=== PATIENT | female | born 1975 | race Caucasian/White ===

== ENCOUNTER → 2016-11-06 | Outpatient (CLI) | payer OTHER ==
--- NOTE | ~2016-11-06 | ENPV ---
Vascular Lower Extremities Venous Insufficiency and Lower Extremities DVT Study Procedure Demographics Patient Name JUSTO RUFFIN Date of Study 11/06/2016 Patient Number [id number] Gender Female Date of 1975 Age 40 Visit Number [id number] Height Accession Number [id number] Weight Room Number BSA BMI Referring German Tovar PAC Interpreting Enio Osuna MD Physician Physician Physician Ordering Physician German DEJESUS New Car Salesperson Fur Cleaner Tami Aguiar T Chantal Martinez Conclusions Summary No evidence of deep vein thrombosis or superficial thrombophlebitis in the right lower extremity . No significant reflux noted in the right greater saphenous vein. Procedure Type of Study: Veins:Lower Extremities Venous Insufficiency, Lower Extremities DVT Study, Lower Extremity Right. Indications for Study:Pain in Limb. Appropriate Use Criteria:5 Patient Status:Routine. Study Location:Vascular Lab. Technical Quality:Adequate visualization. Velocities are measured in cm/s ; Diameters are measured in cm Right Doppler Measurements and Mapping + +------+------+ +-------+ + !Location !Signal!Reflux!Reflux (sec)!AP Diam!Trans Diam ! + +------+------+ +-------+ + !Sapheno Femoral Junction !Phasic!No ! !0.35 !0.38 ! + +------+------+ +-------+ + !GSV High Thigh !Phasic!No ! !0.27 !0.26 ! + +------+------+ +-------+ + !GSV Mid Thigh !Phasic!No ! !0.22 !0.22 ! + +------+------+ +-------+ + !GSV Low Thigh !Phasic!No ! !0.23 !0.33 ! + +------+------+ +-------+ + !GSV Knee !Phasic!No ! !0.18 !0.18 ! + +------+------+ +-------+ + !GSV High Calf !Phasic!No ! !0.1 !0.13 ! + +------+------+ +-------+ + !GSV Mid Calf !Phasic!No ! !0.1 !0.11 ! + +------+------+ +-------+ + !GSV Low Calf !Phasic!No ! !0.13 !0.15 ! + +------+------+ +-------+ + Velocities are measured in cm/s ; Diameters are measured in cm Right Lower Extremities DVT Study Measurements Right 2D and Doppler Measurements + + + + +------+------+ + !Location !Visualized!Compressibility!Thrombosis!Signal!Reflux!Reflux ! ! ! ! ! ! ! !(sec) ! + + + + +------+------+ + !GSV Thigh !Yes !Yes !None !Phasic! ! ! + + + + +------+------+ + !Common !Yes !Yes !None !Phasic! ! ! !Femoral ! ! ! ! ! ! ! + + + + +------+------+ + !Prox !Yes !Yes !None !Phasic! ! ! !Femoral ! ! ! ! ! ! ! + + + + +------+------+ + !Mid Femoral!Yes !Yes !None !Phasic! ! ! + + + + +------+------+ + !Dist !Yes !Yes !None !Phasic! ! ! !Femoral ! ! ! ! ! ! ! + + + + +------+------+ + !Popliteal !Yes !Yes !None !Phasic! ! ! + + + + +------+------+ + !Gastroc !Yes !Yes !None ! ! ! ! + + + + +------+------+ + !PTV !Yes !Yes !None ! ! ! ! + + + + +------+------+ + !Peroneal !Yes !Yes !None ! ! ! ! + + + + +------+------+ + Signature dtt: KODAK HARRINGTON dtlenin: 11/06/16 1315 Physician Self Edit
== END | disposition disaster alternative care site (69) ==
LOC: GCAR 13:00
DX: M79.604 Pain in right leg (principal)

== ENCOUNTER → 2017-04-03 | Outpatient (CLI) | payer OTHER | END | disposition disaster alternative care site (69) | LOC: GRAD 03-29 09:00 | DX: J32.9 Chronic sinusitis, unspecified (principal); J34.2 Deviated nasal septum ==